=== PATIENT | male | born 1985 | race Caucasian/White ===

== ENCOUNTER 2020-04-18 15:50 | Emergency (ER) | payer SELFPAY ==
[2020-04-18] MEDS ORDERED: TETRACAINE HCL 0.5% OPHTH SOL 1 DROP ONE (16:10)
[2020-04-18] MEDS ORDERED: SULFA/TRIMETH 800/160 (DS) TAB 1 EA TAB PO ONE (16:21)
--- NOTE | 2020-04-18 16:24 | ED.PDOC ---
History of Present Illness - General Time Seen by Provider: 04/18/20 15:54 Source: patient Exam Limitations: no limitations - History of Present Illness Initial Comments: The patient is a 35-year-old male presented emergency room secondary to primarily an infection of the right upper eyelid. About 4 days ago the patient accidentally fell in some cactus. He reports that he picked up more than 100 stickers from the cactus. He has a mild area of erythema to the right medial wrist where a few small stickers are still present. Alcohol was used to clean and then an 18-gauge needle was used to remove some of the stickers. The primary area of concern is the upper eyelid of the right eye. Visual acuity is preserved. There is obvious swelling of the upper eyelid. I do not see any foreign body such as a operations general agent the outer eyelid. Raising up the eyelid however there is obvious swelling and purulent drainage. Using tetracaine drops and a cotton tip swab I was able to express most of the pus out of this. No evidence of any more posterior infection. No proptosis. No pain with extraocular movements. No visual changes. Pupils are symmetrical and reactive. No evidence of swelling or infection at the edge of the eyelid itself. It is draining approximately 1 cm up into the central eyelid. No fevers. Timing/Duration: other - 4 days Severity: moderate Improving Factors: nothing Worsening Factors: nothing Associated Symptoms: denies symptoms Allergies/Adverse Reactions: Allergies NO KNOWN ALLERGY Allergy (Verified 12/28/14 19:13) Home Medications: Ambulatory Orders Naproxen [Naprosyn] 500 mg PO BID #20 tab 12/28/14 Tramadol HCl [Ultram] 50 mg PO QID PRN #10 tab 12/28/14 Erythromycin Ophth Oint 0.3 inch RIGHT_EYE Q6HRS #10 day 04/18/20 Sulfa/Trimeth 800/160 (Ds) Tab [Bactrim DS Tab] 1 ea PO BID #20 tab 04/18/20 Review of Systems - Review of Systems Constitutional: States: no symptoms reported EENTM: States: see HPI Respiratory: States: no symptoms reported Cardiology: States: no symptoms reported Gastrointestinal/Abdominal: States: no symptoms reported Genitourinary: States: no symptoms reported Musculoskeletal: States: no symptoms reported Skin: States: see HPI Neurological: States: no symptoms reported Endocrine: States: no symptoms reported All other Systems: No Change from Baseline Past Medical History (General) - Patient Medical History Hx Asthma: Yes - Vaccination History Hx Tetanus, Diphtheria Vaccination: No Hx Influenza Vaccination: No Hx Pneumococcal Vaccination: No - Social History Hx Tobacco Use: Yes Hx Alcohol Use: No Hx Substance Use: No Hx Substance Use Treatment: No Hx Depression: Yes Family Medical History - Family History Mother Family History: Unknown Living Status: Unknown Physical Exam - Physical Exam General Appearance: Alert, Comfortable, No apparent distress Eye Exam: bilateral normal - See history of present illness for right upper eyelid Ears, Nose, Throat: hearing grossly normal, normal ENT inspection Respiratory: no respiratory distress, no accessory muscle use Cardiovascular/Chest: normal peripheral pulses, other - Regular rate Peripheral Pulses: radial,right: 2+, radial,left: 2+ Rectal Exam: deferred Extremity: normal range of motion, no pedal edema, normal capillary refill 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 The patient additionally either has a mild preseptal cellulitis of the right upper eyelid versus a chalazion of the eyelid. We were able to make the area drained to the inside. The patient is going to be placed on Bactrim twice daily for the next 10 days and additionally he is going to be put on erythromycin ointment for the next 10 days for that eye. No foreign body was found there. No evidence of pathology to the eye itself at this time. Warm compresses and pressure can be used several times a day to keep the area draining until it heals from the inside. I do want the patient to follow back up with his primary care doctor in 2 to 3 days for repeat evaluation. ER warnings are given. Several small stickers were still removed from the wrist today. amie [id number] 04/18/20 16:30 Departure - Departure Clinical Impression: Preseptal cellulitis of right upper eyelid Cellulitis of arm Qualifiers: Laterality: right Qualified Code(s): L03.113 - Cellulitis of right upper limb Disposition: Discharge to Home or Self Care Condition: Fair Instructions: Cellulitis and Erysipelas (Skin Infections) Diet: regular diet Activity: increase activity as tolerated Prescriptions: Erythromycin Ophth Oint 0.3 inch RIGHT_EYE Q6HRS #10 day Sulfa/Trimeth 800/160 (Ds) Tab [Bactrim DS Tab] 1 ea PO BID #20 tab Home Medications: Ambulatory Orders Naproxen [Naprosyn] 500 mg PO BID #20 tab 12/28/14 Tramadol HCl [Ultram] 50 mg PO QID PRN #10 tab 12/28/14 Erythromycin Ophth Oint 0.3 inch RIGHT_EYE Q6HRS #10 day 04/18/20 Sulfa/Trimeth 800/160 (Ds) Tab [Bactrim DS Tab] 1 ea PO BID #20 tab 04/18/20 Additional Instructions: The patient is a 35-year-old male presented emergency room secondary to mild cellulitis of the wrist from cactus 4 days ago. The patient additionally either has a mild preseptal cellulitis of the right upper eyelid versus a chalazion of the eyelid. We were able to make the area drained to the inside. The patient is going to be placed on Bactrim twice daily for the next 10 days and additionally he is going to be put on erythromycin ointment for the next 10 days for that eye. No foreign body was found there. No evidence of pathology to the eye itself at this time. Warm compresses and pressure can be used several times a day to keep the area draining until it heals from the inside. I do want the patient to follow back up with his primary care doctor in 2 to 3 days for repeat evaluation. ER warnings are given. Several small stickers were still removed from the wrist today.
[2020-04-18 16:51] VITALS: BP 129/74; TEMP 98; O2SAT 99
== END 2020-04-18 16:49 | disposition home or self-care (01) ==
LOC: ER 15:50
DX: L03.213 Periorbital cellulitis (principal); L03.113 Cellulitis of right upper limb; F32.9 Major depressive disorder, single episode, unspecified; J45.909 Unspecified asthma, uncomplicated; Z87.891 Personal history of nicotine dependence